=== PATIENT | female | born 1965 | race African-American/Black ===

== ENCOUNTER 2019-12-23 14:28 | Emergency (ER) | payer SELFPAY | END 2019-12-23 14:50 | disposition home or self-care (01) | LOC: NAV ERS 14:28 | DX: T63.2X1A Toxic effect of venom of scorpion, accidental (unintentional), initial encounter (principal); E11.9 Type 2 diabetes mellitus without complications; K21.9 Gastro-esophageal reflux disease without esophagitis; E78.5 Hyperlipidemia, unspecified; F41.0 Panic disorder [episodic paroxysmal anxiety]; F17.210 Nicotine dependence, cigarettes, uncomplicated; Z79.899 Other long term (current) drug therapy | CPT/HCPCS: 99283 ==